=== PATIENT | female | born 1995 | race Two or more races ===

== ENCOUNTER 2024-11-19 12:25 | Emergency (ER) | payer OTHER ==
[~2024-11-19] VITALS: Ht 167.6 cm; Wt 86.2 kg
[2024-11-19] MEDS ORDERED: ACETAMINOPHEN 500 MG GEL..CAP PO ONE (14:15)
[2024-11-19 14:39] LABS: HEMATOCRIT 36.2 % (36.0-45.00); MEAN CELL VOLUME 85.2 fL (80.00-100.00); MEAN CORPUSCULAR HEMOGLOBIN 28.3 pg (27.00-32.0); MEAN CORPUSCULAR HGB CONC 33.2 g/dl (32.0-36.0); PLATELET COUNT 288 K/uL (150-450); RED BLOOD COUNT 4.25 M/uL (4.00-6.00); RED CELL DISTRIBUTION WIDTH 14.1 % (11.5-14.5)
[2024-11-19 15:03] LABS: CALCIUM 9.2 mg/dL (8.5-10.1); CREATININE SERUM 0.51 mg/dL (0.55-1.02); GFR 143.59; POTASSIUM 3.88 mEq/L (3.5-5.1)
[2024-11-19 15:17] LABS: URINE APPEARANCE Clear; URINE BILIRRUBIN Negative (NEGATIVE); URINE BLOOD Large; URINE COLOR Yellow; URINE GLUCOSE Negative (NEGATIVE); URINE KETONE Trace (NEGATIVE); URINE LEUKOCYTE Negative; URINE NITRATE Negative; URINE PROTEIN Negative (NEGATIVE); URINE UROBILINOGEN 0.2 E.U./dl
[2024-11-19 15:21] LABS: URINE BACTERIA 252.1 uL (0.0-1933); URINE EPITHELIAL CELLS 17.7 uL (0.0-38.8); URINE RBC 630.8 uL (0.0-20.8); URINE WBC 9.1 uL (0.0-23.2)
[2024-11-19] MEDS ORDERED: ZOFRAN8 MG PO (18:34)
[2024-11-19] MEDS ORDERED: PEPCID AC20 MG PO (18:34)
== END 2024-11-19 21:17 | disposition home or self-care (01) ==
LOC: ER 12:25
PROVIDERS: Emergency Medicine
DX: Z34.90 Encounter for supervision of normal pregnancy, unspecified, unspecified trimester (principal); R10.2 Pelvic and perineal pain; R10.9 Unspecified abdominal pain; Z3A.21 21 weeks gestation of pregnancy

== ENCOUNTER 2024-12-19 09:44 | Emergency (ER) | payer OTHER ==
[~2024-12-19] VITALS: Ht 167.6 cm; Wt 87.1 kg
[~2024-12-19 09:44] MED LIST: PEPCID AC20 MG PO; ZOFRAN8 MG PO
[2024-12-19] MEDS ORDERED: MORPHINE SULFATE 4 MG/ML VIAL IV ONE (11:30)
[2024-12-19] MEDS ORDERED: 0.9 % SODIUM CHLORIDE 1,000 ML IV SCH (11:30)
[2024-12-19 12:33] LABS: BASO % 0.1 % (0.1-1.2); EOS # 0.01 (0.04-0.54); EOS % 0.1 % (0.7-7.0); HEMATOCRIT 36.8 % (34.1-44.9); HEMOGLOBIN 12.2 g/dL (11.2-15.7); LYMPH # 1.15 (1.18-3.74); LYMPH % 6.7 % (19.3-53.1); MEAN CORPUSCULAR HEMOGLOBIN 27.9 pg (25.6-32.2); MONO # 0.34 (0.24-0.82); NEUT # 15.64 (1.56-6.13); NEUT % 90.8 % (34.0-71.1); PLATELET COUNT 310 K/uL (163-369); RED BLOOD COUNT 4.38 M/uL (3.93-5.22); RED CELL DISTRIBUTION WIDTH 13.5 % (11.6-14.4)
[2024-12-19 12:59] LABS: URINE APPEARANCE Clear; URINE BILIRRUBIN Negative (NEGATIVE); URINE BLOOD Small; URINE COLOR Yellow; URINE GLUCOSE Negative (NEGATIVE); URINE LEUKOCYTE Negative; URINE NITRATE Negative; URINE PROTEIN Trace (NEGATIVE); URINE UROBILINOGEN 0.2 E.U./dl
[2024-12-19 13:00] LABS: URINE BACTERIA 2005.9 uL (0.0-1933); URINE EPITHELIAL CELLS 81.2 uL (0.0-38.8); URINE KETONE 80 (NEGATIVE); URINE RBC 65.2 uL (0.0-20.8); URINE WBC 41.3 uL (0.0-23.2)
[2024-12-19 13:20] LABS: CALCIUM 9.3 mg/dL (8.5-10.1); CREATININE SERUM 0.88 mg/dL (0.55-1.02); GFR 76.51; POTASSIUM 3.79 mEq/L (3.5-5.1)
[2024-12-19] MEDS ORDERED: ONDANSETRON HCL 2 MG/ML VIAL ONE (16:02)
[2024-12-19] MEDS ORDERED: TAMS0.4C PO (18:14)
[2024-12-19] MEDS ORDERED: ONDANSETRON ODT8 MG PO (18:14)
[2024-12-19] MEDS ORDERED: CEPHALEXIN500 MG PO (18:14)
[2024-12-19] MEDS ORDERED: TAMSULOSIN HCL 0.4 MG CAP PO ONE ×2 (18:15→18:27)
[2024-12-19] MEDS ORDERED: ONDANSETRON HCL 2 MG/ML VIAL IV STA (18:31)
[2024-12-19] MEDS ORDERED: MORPHINE SULFATE 4 MG/ML CARTRIDGE IV STA (18:31)
== END 2024-12-19 18:33 | disposition home or self-care (01) ==
LOC: ER 09:44
PROVIDERS: Emergency Medicine
DX: Z33.1 Pregnant state, incidental (principal); N20.1 Calculus of ureter; M54.50 Low back pain, unspecified

== ENCOUNTER 2024-12-21 10:46 | Emergency (ER) | payer OTHER ==
[~2024-12-21] VITALS: Ht 167.6 cm; Wt 87.1 kg
[~2024-12-21 10:46] MED LIST changes: +CEPHALEXIN500 MG PO; +ONDANSETRON ODT8 MG PO; +TAMS0.4C PO
[2024-12-21] MEDS ORDERED: 0.9 % SODIUM CHLORIDE 1,000 ML IV STA (11:22)
[2024-12-21] MEDS ORDERED: METOCLOPRAMIDE HCL 5 MG/ML VIAL IM STA (11:23)
[2024-12-21] MEDS ORDERED: MORPHINE SULFATE 4 MG/ML VIAL IV STA ×2 (11:24→15:50)
[2024-12-21] MEDS ORDERED: FAMOtidine 10 MG/ML (4ML VIAL) IV PUSH STA (11:24)
[2024-12-21] MEDS ORDERED: METOCLOPRAMIDE HCL 5 MG/ML VIAL ONE (11:33)
[2024-12-21] MEDS ORDERED: FAMOTIDINE/PF 20 MG/2 ML VIAL ONE (11:33)
[2024-12-21 11:42] LABS: BASO % 0.1 % (0.1-1.2); HEMATOCRIT 33.9 % (34.1-44.9); HEMOGLOBIN 11.1 g/dL (11.2-15.7); LYMPH # 1.62 (1.18-3.74); LYMPH % 10.5 % (19.3-53.1); MONO # 0.77 (0.24-0.82); NEUT # 12.96 (1.56-6.13); PLATELET COUNT 300 K/uL (163-369); RED BLOOD COUNT 3.97 M/uL (3.93-5.22); RED CELL DISTRIBUTION WIDTH 13.6 % (11.6-14.4)
[2024-12-21 12:36] LABS: ALBUMIN 2.9 gm/dL (3.4-5.0); BILIRUBIN TOTAL 0.62 mg/dL (0.3-1.2); CALCIUM 8.9 mg/dL (8.5-10.1); CREATININE SERUM 0.98 mg/dL (0.55-1.02); GFR 67.58; GLOBULINA 4.2 G/DL (2.4-3.5); POTASSIUM 3.63 mEq/L (3.5-5.1); TOTAL PROTEIN 7.1 gm/dL (6.4-8.2)
[2024-12-21 14:04] LABS: URINE APPEARANCE Clear; URINE BILIRRUBIN Negative (NEGATIVE); URINE BLOOD NHT; URINE COLOR Yellow; URINE GLUCOSE Negative (NEGATIVE); URINE LEUKOCYTE Trace; URINE NITRATE Negative; URINE PROTEIN 30 (NEGATIVE)
[2024-12-21 14:05] LABS: URINE BACTERIA 1787.9 uL (0.0-1933); URINE EPITHELIAL CELLS 60.6 uL (0.0-38.8); URINE RBC 71.1 uL (0.0-20.8); URINE WBC 67.7 uL (0.0-23.2)
[2024-12-21 14:12] LABS: URINE CAST 0.29 uL (0.0-1.40); URINE KETONE >=160 (NEGATIVE)
[2024-12-21] MEDS ORDERED: ONDANSETRON HCL 2 MG/ML VIAL IV STA (15:09)
[2024-12-21] MEDS ORDERED: ACETAMINOPHEN 500 MG GEL..CAP PO STA (15:18)
[2024-12-21] MEDS ORDERED: ONDANSETRON HCL 2 MG/ML VIAL ONE (15:40)
== END 2024-12-21 18:51 | disposition home or self-care (01) ==
LOC: ER 10:49
DX: Z34.90 Encounter for supervision of normal pregnancy, unspecified, unspecified trimester (principal); Z3A.26 26 weeks gestation of pregnancy; N20.1 Calculus of ureter; R10.9 Unspecified abdominal pain

== ENCOUNTER 2025-03-08 12:41 | Outpatient (CLI) | payer OTHER ==
[~2025-03-08] VITALS: Ht 167.6 cm; Wt 90.7 kg
[2025-03-08 13:09] VITALS: BP 145/88
[2025-03-08 13:40] VITALS: BP 130/70
[2025-03-08] MEDS ORDERED: PRENATAL TABLE1 EAC1 PO (14:04)
[2025-03-08 14:19] LABS: URINE APPEARANCE Clear; URINE BILIRRUBIN Negative (NEGATIVE); URINE BLOOD Negative; URINE COLOR Yellow; URINE GLUCOSE Negative (NEGATIVE); URINE LEUKOCYTE Negative; URINE NITRATE Negative; URINE PROTEIN Negative (NEGATIVE); URINE UROBILINOGEN 0.2 E.U./dl
[2025-03-08 14:20] LABS: URINE BACTERIA 403.0 uL (0.0-1933); URINE EPITHELIAL CELLS 29.0 uL (0.0-38.8); URINE RBC 4.8 uL (0.0-20.8); URINE WBC 12.9 uL (0.0-23.2)
[2025-03-08 14:22] LABS: URINE CAST 0.00 uL (0.0-1.40); URINE KETONE 40 (NEGATIVE)
[2025-03-08 14:29] LABS: BASO % 0.2 % (0.1-1.2); EOS # 0.03 (0.04-0.54); EOS % 0.2 % (0.7-7.0); LYMPH # 2.01 (1.18-3.74); LYMPH % 16.6 % (19.3-53.1); MEAN PLATELET VOLUME 10.50 fl (9.4-12.4); MONO # 0.47 (0.24-0.82); MONO % 3.9 % (4.7-12.5); NEUT # 9.55 (1.56-6.13); NEUT % 78.7 % (34.0-71.1); RED CELL DISTRIBUTION WIDTH 13.6 % (11.6-14.4)
[2025-03-08] MEDS ORDERED: AMPICILLIN SODIUM 2,000 MG VIAL IV ONE (14:30)
[2025-03-08] MEDS ORDERED: RINGERS SOLUTION,LACTATED 1,000 ML IV SCH (14:30)
[2025-03-08 14:52] LABS: ALT/SGPT 23.0 U/L (12-78); AST/SGOT 15.0 U/L (15-37); BILIRUBIN TOTAL 0.42 mg/dL (0.3-1.2); BUN CREA RATIO 16.0 (7.0-25.0); CREATININE SERUM 0.58 mg/dL (0.55-1.02); GFR 123.79; GLOBULINA 3.3 G/DL (2.4-3.5); GLUCOSE FASTING 122.0 mg/dL (65-100); OSMOLALITY SERUM 279.0 MOSM/KG (275-295)
[2025-03-08 15:13] LABS: INR 0.96
[2025-03-08 15:14] VITALS: BP 116/70
[2025-03-08] MEDS ORDERED: AMPICILLIN SODIUM 1,000 MG VIAL IV SCH (17:00)
[2025-03-08 19:32] VITALS: BP 124/73
[2025-03-08 23:10] VITALS: BP 104/58
[2025-03-09 04:15] VITALS: BP 111/72
[2025-03-09 06:25] VITALS: BP 124/73; O2SAT 98
[2025-03-09 11:24] VITALS: BP 106/55
[2025-03-09 14:18] LABS: URINE PROT QUANT 24HR 8.4 MG/DL
[2025-03-09 14:19] LABS: URINE PROT QUANT 24 HR 254.1 MG/24HR (42-225)
[2025-03-09 14:28] LABS: CREATINE CLEARANCE 176.6 ML/MIN (97-137); CREATININE SERUM 0.54 mg/dL (0.6-1.0)
[2025-03-09 15:41] VITALS: BP 110/75
== END 2025-03-09 15:42 | disposition home or self-care (01) ==
LOC: OBS/DEL 12:41
PROVIDERS: Student in an Organized Health Care Education/Training Program; ATTEND Specialist
DX: O26.893 Other specified pregnancy related conditions, third trimester (principal); Z3A.37 37 weeks gestation of pregnancy

== ENCOUNTER 2025-03-13 05:19 | Inpatient (IN) | payer OTHER ==
[~2025-03-13] VITALS: Ht 167.6 cm; Wt 90.7 kg
[2025-03-13] VITALS (8 sets, daily range): BP systolic 117–144; BP diastolic 57–80
[~2025-03-13 05:19] MED LIST changes: +AMPICILLIN SODIUM 2,000 MG VIAL ONE; +PRENATAL TABLE1 EAC1 PO
[2025-03-13] MEDS ORDERED: AMPICILLIN SODIUM 2,000 MG VIAL IV ONE (06:15)
[2025-03-13] MEDS ORDERED: RINGERS SOLUTION,LACTATED 1,000 ML IV SCH (06:30)
[2025-03-13 06:51] LABS: URINE APPEARANCE Clear; URINE BILIRRUBIN Negative (NEGATIVE); URINE BLOOD Moderate; URINE COLOR Yellow; URINE GLUCOSE Negative (NEGATIVE); URINE KETONE 15 (NEGATIVE); URINE LEUKOCYTE Negative; URINE NITRATE Negative; URINE PROTEIN Trace (NEGATIVE); URINE UROBILINOGEN 0.2 E.U./dl
[2025-03-13 06:52] LABS: URINE BACTERIA 109.1 uL (0.0-1933); URINE EPITHELIAL CELLS 28.4 uL (0.0-38.8); URINE RBC 350.8 uL (0.0-20.8); URINE WBC 9.8 uL (0.0-23.2)
[2025-03-13 06:53] LABS: BASO % 0.4 % (0.1-1.2); EOS # 0.05 (0.04-0.54); EOS % 0.4 % (0.7-7.0); LYMPH # 2.34 (1.18-3.74); LYMPH % 20.9 % (19.3-53.1); MEAN PLATELET VOLUME 10.20 fl (9.4-12.4); MONO # 0.64 (0.24-0.82); MONO % 5.7 % (4.7-12.5); NEUT # 8.11 (1.56-6.13); NEUT % 72.3 % (34.0-71.1); RED CELL DISTRIBUTION WIDTH 13.7 % (11.6-14.4)
[2025-03-13 07:09] LABS: URINE CAST 0.14 uL (0.0-1.40)
[2025-03-13 07:13] LABS: INR 0.94
[2025-03-13 07:27] LABS: ALT/SGPT 24.0 U/L (12-78); AST/SGOT 19.0 U/L (15-37); BILIRUBIN TOTAL 0.49 mg/dL (0.3-1.2); BUN CREA RATIO 15.0 (7.0-25.0); CREATININE SERUM 0.61 mg/dL (0.55-1.02); GFR 116.79; GLOBULINA 3.6 G/DL (2.4-3.5); GLUCOSE FASTING 70.0 mg/dL (65-100); OSMOLALITY SERUM 276.0 MOSM/KG (275-295)
[2025-03-13] MEDS ORDERED: OXYTOCIN 500 ML IV SCH (08:45)
[2025-03-13] MEDS ORDERED: AMPICILLIN SODIUM 1,000 MG VIAL IV SCH (09:00)
[2025-03-13] MEDS ORDERED: OXYTOCIN 20 UNITS/500ML RL PIGGYBAG IV ONE (09:05)
[2025-03-13] MEDS ORDERED: MORPHINE SULFATE 4 MG/ML VIAL IV ONE (10:45)
[2025-03-13] MEDS ORDERED: ERYTHROMYCIN BASE OPHT 1GM EACH TUBE OP ONE (15:00)
[2025-03-13] MEDS ORDERED: LIDOCAINE HCL 1% 10ML VIAL IJ ONE (15:00)
[2025-03-13] MEDS ORDERED: OXYTOCIN 1,000 ML IV SCH (15:00)
[2025-03-13] MEDS ORDERED: CHLORHEXIDINE GLUCONATE 120 ML BOTTLE TOP ONE (15:00)
[2025-03-14 00:09] VITALS: BP 114/73
[2025-03-14 08:23] VITALS: BP 116/72
[2025-03-14 16:00] VITALS: BP 117/70
[2025-03-15] VITALS: BP 131/84
[2025-03-15 09:20] VITALS: BP 135/74
== END 2025-03-15 15:29 | disposition home or self-care (01) | DRG 807 ==
LOC: LDR 05:19 → OB/GYN 05:19
PROVIDERS: ADMIT Specialist; ATTEND Specialist
PROC: 10E0XZZ Delivery of Products of Conception, External Approach (ICD-10-PCS; principal; 2025-03-13)
PROC: 0KQM0ZZ Repair Perineum Muscle, Open Approach (ICD-10-PCS; 2025-03-13)
PROC: 4A1HXCZ Monitoring of Products of Conception, Cardiac Rate, External Approach (ICD-10-PCS; 2025-03-13)
DX: O70.1 Second degree perineal laceration during delivery (principal); Z37.0 Single live birth; O99.824 Streptococcus B carrier state complicating childbirth; O69.81X0 Labor and delivery complicated by cord around neck, without compression, not applicable or unspecified; Z3A.37 37 weeks gestation of pregnancy